=== PATIENT | male | born 1945 | race Caucasian/White ===

== ENCOUNTER 2024-03-28 11:45 | Day surgery (SDC) | payer MEDICARE ==
[~2024-03-28] VITALS: Ht 177.8 cm; Wt 75.9 kg
[~2024-03-28 11:45] MED LIST: Balanced Salt Epinephrine Irrigation Solution 500 mL IR SCH; Lidocaine HCl/Pf 1% 5 ML VIAL XX SCH; Moxifloxacin HCL 0.5 MG/0.1 ML 0.4MLSYR LEFTEYE SCH; NS 500 ML IV ONE; PHENYLEPHRINE\\TROPICAMIDE\\TETRACAINE OPHTHALMIC DILATING SOLN LEFTEYE PRN; Povidone-Iodine 450 DROP/30 ML Solution LEFTEYE SCH
[2024-03-28] MEDS ORDERED: Tropicamide 1% Opth Soln 15 ML BTL ONE (11:52)
[2024-03-28] MEDS ORDERED: TAMSULOSIN HCL0.4 M1 PO (12:37)
[2024-03-28] MEDS ORDERED: ATORVASTATIN CA20 MG PO (12:37)
[2024-03-28] MEDS ORDERED: Prinivil10 MG PO (12:38)
[2024-03-28] MEDS ORDERED: ASPIR 8181 M1 PO (12:42)
[2024-03-28] MEDS ORDERED: NS 500 ML IV ONE (12:47)
[2024-03-28] MEDS ORDERED: Midazolam HCl 1MG / ML 2ML Vial ONE (12:57)
[2024-03-28] MEDS ORDERED: FentaNYL Citrate 50 MCG/ML 2 ML Injection ONE (12:57)
[2024-03-28] MEDS ORDERED: Tetracaine HCl 0.5% Opth Soln 15 ml LEFTEYE ONE (13:29)
--- NOTE | 2024-03-28 15:16 | NUR ---
03/28/24 1516 Ernie Bailey DELIVERED TO IN PARKING LOT.
[2024-03-28 15:21] VITALS: BP 129/74
== END 2024-03-28 14:20 | disposition home or self-care (01) ==
LOC: ORSCSDS 11:45
PROVIDERS: Student in an Organized Health Care Education/Training Program
PROC: 08RK3JZ Replacement of Left Lens with Synthetic Substitute, Percutaneous Approach (ICD-10-PCS; principal; 2024-03-28 13:00)
DX: H25.813 Combined forms of age-related cataract, bilateral (principal); I10 Essential (primary) hypertension; H53.001 Unspecified amblyopia, right eye; Z79.82 Long term (current) use of aspirin; Z79.899 Other long term (current) drug therapy
CPT/HCPCS: J2250; J3010; J7040; V2632

== ENCOUNTER 2024-04-11 11:10 | Day surgery (SDC) | payer MEDICARE ==
[~2024-04-11] VITALS: Ht 175.3 cm; Wt 76.0 kg
[~2024-04-11 11:10] MED LIST changes: +ASPIR 8181 M1 PO; +ATORVASTATIN CA20 MG PO; -Moxifloxacin HCL 0.5 MG/0.1 ML 0.4MLSYR LEFTEYE SCH; +Moxifloxacin HCL 0.5 MG/0.1 ML 0.4MLSYR RIGHTEYE SCH; -PHENYLEPHRINE\\TROPICAMIDE\\TETRACAINE OPHTHALMIC DILATING SOLN LEFTEYE PRN; +PHENYLEPHRINE\\TROPICAMIDE\\TETRACAINE OPHTHALMIC DILATING SOLN RIGHTEYE PRN; -Povidone-Iodine 450 DROP/30 ML Solution LEFTEYE SCH; +Povidone-Iodine 450 DROP/30 ML Solution RIGHTEYE SCH; +Prinivil10 MG PO; +TAMSULOSIN HCL0.4 M1 PO
--- NOTE | 2024-04-11 11:38 | NUR ---
04/11/24 1138 Nunu Terrell TETRADAVID: [id number] SAYRA: [id number]
[2024-04-11] MEDS ORDERED: Midazolam HCl 1MG / ML 2ML Vial ONE (11:54)
[2024-04-11] MEDS ORDERED: FentaNYL Citrate 50 MCG/ML 2 ML Injection ONE (11:54)
[2024-04-11] MEDS ORDERED: Tetracaine HCl 0.5% Opth Soln 15 ml RIGHTEYE ONE (12:25)
[2024-04-11 12:37] VITALS: BP 134/86
== END 2024-04-11 12:47 | disposition home or self-care (01) ==
LOC: ORSCSDS 11:10
PROVIDERS: Student in an Organized Health Care Education/Training Program
PROC: 08RJ3JZ Replacement of Right Lens with Synthetic Substitute, Percutaneous Approach (ICD-10-PCS; principal; 2024-04-11 12:30)
DX: H25.811 Combined forms of age-related cataract, right eye (principal); Z96.1 Presence of intraocular lens; H53.001 Unspecified amblyopia, right eye; I10 Essential (primary) hypertension; Z79.82 Long term (current) use of aspirin; Z79.899 Other long term (current) drug therapy
CPT/HCPCS: J2250; J3010; J7040; V2632

== ENCOUNTER 2025-02-04 10:33 | Day surgery (SDC) | payer MEDICARE ==
[~2025-02-04] VITALS: Ht 175.3 cm; Wt 76.5 kg
[~2025-02-04 10:33] MED LIST changes: -Balanced Salt Epinephrine Irrigation Solution 500 mL IR SCH; +FentaNYL Citrate 50 MCG/ML 2 ML Injection ONE; -Lidocaine HCl/Pf 1% 5 ML VIAL XX SCH; +Midazolam HCl 1MG / ML 2ML Vial ONE; -Moxifloxacin HCL 0.5 MG/0.1 ML 0.4MLSYR RIGHTEYE SCH; -PHENYLEPHRINE\\TROPICAMIDE\\TETRACAINE OPHTHALMIC DILATING SOLN RIGHTEYE PRN; -Povidone-Iodine 450 DROP/30 ML Solution RIGHTEYE SCH
[2025-02-04] MEDS ORDERED: NS 500 ML IV ONE (11:13)
[2025-02-04] MEDS ORDERED: CeFAZolin Sodium 2,000 MG VIAL ONE (11:20)
[2025-02-04] MEDS ORDERED: NS 50 ML IV ONE (11:38)
[2025-02-04 12:07] VITALS: BP 126/76
== END 2025-02-04 12:32 | disposition home or self-care (01) ==
LOC: ORSCSDS 10:33
PROVIDERS: Orthopaedic Surgery
PROC: 0LN80ZZ Release Left Hand Tendon, Open Approach (ICD-10-PCS; principal; 2025-02-04 12:00)
DX: M65.332 Trigger finger, left middle finger (principal); I10 Essential (primary) hypertension; E78.00 Pure hypercholesterolemia, unspecified; Z79.899 Other long term (current) drug therapy
CPT/HCPCS: J0690; J2250; J3010; J7040